=== PATIENT | male | born 2000 | race Caucasian/White ===

== ENCOUNTER 2024-11-05 19:48 | Emergency (ER) | payer OTHER ==
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
[2024-11-05] MEDS: AMOXIC-POT CLAV 875-125MG 1 EACH TAB PO STA (20:53)
[2024-11-05] MEDS: BUPIVACAINE (PF) 0.25% 30 ML VIAL SQ ONE (20:55)
[2024-11-05 21:34] VITALS: BP 165/107; PULSE 111; RESP 18; TEMP 98.6
[2024-11-05] MEDS: HYDROcodone/APAP 7.5-325MG 1 EACH TAB PO ONE (21:37)
[2024-11-05] MEDS: ACET/COD 300 MG/30 MG STARTER PACK 6 TAB BTL PO STA (21:40)
== END 2024-11-05 21:45 | disposition home or self-care (01) ==
LOC: EC 19:48
DX: K04.7 Periapical abscess without sinus (principal); F17.290 Nicotine dependence, other tobacco product, uncomplicated
CPT/HCPCS: 99283 ×2; 64400; J0665